=== PATIENT | male | born 1980 | race Hispanic/Latino ===

== ENCOUNTER 2020-06-04 21:28 | Emergency (ER) | payer OTHER, SELFPAY ==
[2020-06-04] VITALS (10 sets, daily range): BP systolic 154–189; BP diastolic 71–88; PULSE 99–109; RESP 18–22; TEMP 37.1; O2SAT 92–99; BMI 26.6
[2020-06-04] MEDS: ALBUTEROL/IPRATROPIUM 3 ML AMPUL INH (21:43)
[2020-06-04 22:02] LABS: COVID19 -Nasal RAPID Negative (Negative)
--- NOTE | 2020-06-04 22:17 | ED.SOB ---
HPI - SOB/Dyspnea General Chief Complaint: Shortness of Breath/Dyspnea Stated Complaint: Short of breath and chest pain Time Seen by Provider: 06/04/20 21:40 Source: patient Mode of arrival: Ambulatory Limitations: no limitations History of Present Illness HPI Narrative: The patient has asthma. He uses albuterol. He has increased dyspnea and nonproductive cough started yesterday. He arrives to the ER today, complaining and it did increase tightness. He has no headache, sore throat, or chest pain. His cough is nonproductive. He has no fever. He smokes marijuana. He does have allergies. He has no other complaints associated with the dyspnea. Related Data Previous Rx's Medication Instructions Recorded prednisone 60 mg PO DAILY 5 Days #15 tab 06/05/20 Review of Systems Constitutional Constitutional: Denies chills, Denies fever(s), Denies headache(s) and Denies weakness Eyes Comments: No complaints ENT Ears, Nose, Mouth, and Throat: Denies headache(s), Denies nasal discharge, Denies sinus pressure and Denies sore throat Cardiovascular Cardiovascular: Denies chest pain, Denies rapid heart rate and Reports dyspnea Respiratory Respiratory: Reports cough, Reports dyspnea and Reports wheezing Gastrointestinal Gastrointestinal: Denies abdominal pain, Denies diarrhea, Denies nausea and Denies vomiting Musculoskeletal Musculoskeletal: Denies arthralgias, Denies back pain, Denies myalgias and Denies numbness Integumentary/Breasts Skin/Breast: Denies erythema and Denies rash Neurologic Neurologic: Denies confusion, Denies headache(s), Denies memory loss, Denies numbness and Denies weakness Psychiatric Psychiatric: Denies confusion, Denies depression and Denies memory loss Allergic/Immunologic Allergic/Immunologic: Reports wheezing Patient History Medical History Asthma Surgical History No significant past surgical history Social History (Updated 06/05/20 @ 00:20 by Levon Crespo MD) Smoking Status: Never smoker substance use type: marijuana Smoking Status: Never smoker Substance Use Type: marijuana Exam Initial Vital Signs Initial Vital Signs: Vital Signs Temperature 98.8 F 06/04/20 21:35 Pulse Rate 104 H 03/18/21 21:35 Respiratory Rate 22 06/04/20 21:35 Blood Pressure 189/88 H 06/04/20 21:35 Pulse Oximetry 94 06/04/20 21:35 Const General: cooperative and well developed Nutritional Appearance: well nourished [facility] Head: normocephalic and atraumatic Face and sinus: sinuses nontender Mouth: oral mucosae normal Throat: posterior oropharynx normal Eyes Conjunctivae: conjunctivae normal Neck Neck: No lymphadenopathy Resp Other: Diffuse wheezes throughout both lung huerta. Cardio Rate: regular rate Rhythm: regular rhythm Heart Sounds: S1 normal, S2 normal, no click, no gallops, no murmurs and no rubs Pulses: normal peripheral pulses GI Palpation: soft and No tender Auscultation: normal bowel sounds Back/Spine/Pelvis Back: normal to inspection and No back tenderness Skin General: no rashes or lesions noted Neuro General: patient alert, patient oriented x3, gait normal and no focal motor deficits Speech: speech normal Extrem General: no pedal edema and no calf tenderness Psych Mental Status: mental status grossly normal Course Course Course Narrative: The patient received new DuoNeb. Following the 1st time in his peak flow was 150-200. He was given prednisone 60 mg p.o., an additional 2 abuser all treatments. His peak flow increased to 50. Prior to discharge she is feeling much improved, he has slight bilateral wheezes at the time of discharge. He was discharged on prednisone as well as own prescription for albuterol. Orders Ordered: ED Orders 06/04/20 21:35 COVID19 -Nasal swab/Pre-Proc Stat 06/04/20 21:40 EKG-12 Lead Stat RT Consult Eval and Treat NOW Discontinued Medications Albuterol (Albuterol 2.5 Mg/3 Ml Neb (Adult)) 2.5 mg INH NOW ONE Stop: 06/04/20 22:17 Last Admin: 06/04/20 22:37 Dose: 2.5 mg Documented by: [facility] Albuterol (Albuterol 2.5 Mg/3 Ml Neb (Adult)) 2.5 mg INH NOW ONE Stop: 06/04/20 23:41 Last Admin: 06/04/20 23:53 Dose: 2.5 mg Documented by: [facility]MM Albuterol/Ipratropium (Albuterol/Ipratropium 3 Ml Ampul) 3 ml INH NOW ONE Stop: 06/04/20 21:42 Last Admin: 06/04/20 21:43 Dose: 3 ml Documented by: [facility]MM Prednisone (Prednisone 20 Mg Tablet) 60 mg PO NOW ONE Stop: 06/04/20 22:17 Last Admin: 06/04/20 22:21 Dose: 60 mg Documented by: KASHMIR Vital Signs Vital signs: Vital Signs - 8 hr 06/04/20 21:35 06/04/20 21:41 06/04/20 21:51 Temperature 98.8 F Pulse Rate 104 H 99 H 109 H Respiratory Rate 22 22 Blood Pressure 189/88 H Pulse Oximetry 94 94 93 06/04/20 22:00 06/04/20 22:30 06/04/20 22:37 Temperature Pulse Rate 100 H 101 H 100 H Respiratory Rate 20 Blood Pressure Pulse Oximetry 94 98 99 06/04/20 23:00 06/04/20 23:06 06/04/20 23:30 Temperature Pulse Rate 104 H 102 H 104 H Respiratory Rate 18 Blood Pressure 154/71 H 154/71 H Pulse Oximetry 94 92 92 06/04/20 23:53 06/05/20 00:00 06/05/20 00:07 Temperature Pulse Rate 99 H 102 H 107 H Respiratory Rate 18 Blood Pressure 158/77 H Pulse Oximetry 94 95 94 MDM - SOB/Dyspnea Lab Data Labs: Lab Results 06/04/20 Range/Units 21:35 SARS-CoV-2 (PCR) Negative (Negative) Discharge Plan Departure Patient Disposition: Home Clinical Impression: Asthma with exacerbation Qualifiers: Asthma severity: moderate Asthma persistence: unspecified Qualified Code(s): J45.901 - Unspecified asthma with (acute) exacerbation Instructions: DI for Asthma -- Adult Activity Restrictions/Additional Instructions: Continue your current treatment with albuterol, 2 puffs every 4 hours as needed. Prednisone 60 mg daily for 5 days. Recheck with your doctor about 1 week. Return the ER if symptoms worsen. Prescriptions: New prednisone 20 mg tablet 60 mg PO DAILY 5 Days Qty: 15 RF: 0
[2020-06-04] MEDS: predniSONE 20 MG TABLET 60 MG PO (22:21)
[2020-06-04] MEDS: ALBUTEROL 2.5 MG/3 ML NEB (ADULT) INH ×2 (22:37→23:53)
[2020-06-05] VITALS: PULSE 102; O2SAT 95
[2020-06-05 00:07] VITALS: BP 158/77; PULSE 107; O2SAT 94
== END 2020-06-05 00:16 | disposition home or self-care (01) ==
PROVIDERS: Emergency Provider Emergency Medicine
DX: J45.901 Unspecified asthma with (acute) exacerbation (principal); R05 Cough; R07.9 Chest pain, unspecified; Z20.822 Contact with and (suspected) exposure to COVID-19
CPT/HCPCS: 87635; 93005; 93010; 94150; 94640; 99283; C9803; J7613